=== PATIENT | female | born 1965 | race Asian ===

== ENCOUNTER 2017-05-29 15:29 | Emergency (ER) | payer OTHER ==
[~2017-05-29] VITALS: Ht 157.5 cm; Wt 59.0 kg
[2017-05-29 15:32] VITALS: BP 131/83
[2017-05-29] MEDS ORDERED: IBUPROFEN600 MG ORAL (16:33)
--- NOTE | 2017-05-29 16:39 | Diagnostic Imaging Report ---
Indication: PAIN Technique: 3 views left left hand Comparison: none Findings: There is degenerative joint space narrowing of the second through fifth distal interphalangeal joints. There is some erosion about the fifth distal interphalangeal joint as well as some deformity. The remainder of the joint spaces are preserved. On the oblique view, there is a questionable lucency through the scaphoid waist, not confirmed on any of the other views. No other evidence of acute fractures. 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 Correlate with clinical findings Findings discussed by phone with Cornelio nurse practitioner, in the emergency room at the time of interpretation
--- NOTE | 2017-05-29 18:30 | Emergency Room Report ---
History of Present Illness General Chief Complaint: Pain Source: Patient Present Illness HPI The patient is a 51-year-old female presenting for left fifth finger pain. She states that she was at work 3 days prior, talking in a sheet under a mattress when she experienced pain to this area. She states that after this incident, she was also able to fully move the finger. Pain has continued and is an 8/10 dull ache. Does not radiate. Worse with touch and movement. She has tried Motrin which slightly helps. She denies any numbness or tingling. She denies any other symptoms Allergies: Coded Allergies: No Known Allergies (Unverified , 05/29/17) Patient History Past Medical History: see triage record Pertinent Family History: none Last Menstrual Period: 05/21/17 Now: No : 3 Para: 3 Reviewed Nursing Documentation: PMH: Agreed, PSxH: Agreed Nursing Documentation-PMH Hx Hypertension: Yes Hx Diabetes: No - Pre-diabetes Review of Systems All Other Systems: negative except mentioned in HPI Physical Exam Vital Signs Date Time Temp Pulse Resp B/P (MAP) Pulse Ox O2 Delivery O2 Flow Rate FiO2 05/29/17 15:32 97.7 69 18 131/83 99 Room Air Sp02 EP Interpretation: reviewed, normal General Appearance: no apparent distress, alert, GCS 15, non-toxic Head: normocephalic, atraumatic Eyes: bilateral eye normal inspection, bilateral eye PERRL ENT: hearing grossly normal, normal pharynx, no angioedema, normal voice Musculoskeletal: back normal, gait/station normal, decreased range of motion - unable to fully extend at the DIPJ, inflammation - L 5th DIPJ, tender - TTP over the L 5th DIPJ Neurologic: alert, oriented x3, responsive, motor strength/tone normal, sensory intact, speech normal Psychiatric: judgement/insight normal, memory normal, mood/affect normal, no suicidal/homicidal ideation Skin: normal color, no rash, warm/dry, well hydrated Procedures Splinting Splinting : Consent: Verbal Location: L 5th finger Pre-Made Type: metal Pre-Proc Neuro Vasc Exam: normal Post-Proc Neuro Vasc Exam: normal Patient Tolerated: Well Complications: None Medical Decision Making PA Attestation Dr. Lee is my supervising physician. Patient management was discussed with my supervising physician Diagnostic Impression: Primary Impression: Finger pain, left ER Course The patient is a 51-year-old female presenting for left fifth finger pain Differential diagnoses considered but not limited to: Fracture, contusion, sprain, dislocation Physical exam: Vitals within normal limits. no apparent distress There is tenderness to palpation, swelling, and decreased extension to the L 5th DIPJ X-ray of the hand is unremarkable for acute findings. A finger splint is placed and the patient is given RICE instructions. The patient will followup with Hand specialist as instructed. ER precautions given Other X-Ray Diagnostic Results Other X-Ray Diagnostic Results : X-Ray ordered: L hand # of Views/Limited Vs Complete: 3 View, Complete Indication: Pain EP Interpretation: Yes PA Xray: Interpretation reviewed, by supervising MD, and agrees with findings. Interpretation: no dislocation, no soft tissue swelling, no fractures Impression: No acute disease Electronically Signed by: Cornelio lBake PA-C Last Vital Signs Date Time Temp Pulse Resp B/P (MAP) Pulse Ox O2 Delivery O2 Flow Rate FiO2 05/29/17 15:32 97.7 69 18 131/83 99 Room Air Status: improved Disposition: HOME, SELF-CARE Condition: Improved Scripts Ibuprofen* (MOTRIN*) 600 Mg Tablet 600 MG ORAL Q8H Y for For Pain, #30 TAB 0 Refills Prov: CORNELIO BLAKE 05/29/17 Patient Instructions: Finger Sprain Additional Instructions: I discussed my findings with the patient. All questions and concerns have been answered. Treatment and medication compliance have been addressed. Return to ED if pain remains or worsens, numbness or tingling occurs, new rash is noticed, fever is noticed, or if needed for any reason. Patient verbalized understanding of discharge instructions. I informed the patient that she needs to followup with a hand specialist as soon as possible CORNELIO BLAKE May 29, 2017 18:30
== END 2017-05-29 16:26 | disposition home or self-care (01) ==
LOC: EMR 15:54
DX: M25.542 Pain in joints of left hand (principal); I10 Essential (primary) hypertension; R73.03 Prediabetes
CPT/HCPCS: 29130; 99283